=== PATIENT | female | born 1995 | race African-American/Black ===

== ENCOUNTER 2019-07-21 09:19 | Inpatient (IN) ==
[2019-07-21] MEDS ORDERED: KETOROLAC TROMETHAMINE 15 MG/ML VIAL IV STA (09:41)
[2019-07-21] MEDS ORDERED: PIPERACILLIN/TAZOBACTAM 4.5 GM/120 ML BAG IV STA (09:41)
[2019-07-21] MEDS ORDERED: SODIUM CHLORIDE 0.9% 1000ML 1,000 ML IV SCH (09:45)
--- NOTE | 2019-07-21 09:47 | Emergency Department Note ---
Impression & Plan Perirectal cellulitis, Leukocytosis ED Provider Note NAME: ANCA FARIAS AGE: 23 SEX: F : 1995 ARRIVES VIA: Walk-In INFORMANT: [Patient][outpt doctor] ED PROVIDER(S): [John Park MD] CHIEF COMPLAINT: Rectal pain HISTORY OF PRESENT ILLNESS: The patient is a 23-year-old female who presents with 6 days of left-sided rectal pain. The patient states that she thought she had a boil in the area. The pain has become a 9/10. The pain is worse to sit on the area. She is able to have a bowel movement without difficulty. She has had no fever or chills. She is not diabetic. No urinary complaints. The patient went to [facility] and then was referred to the ED after she was examined. There was concern for perirectal abscess. The patient has no history of any type of process like this before. She has not had vomiting. She has not been having chest pain or shortness of breath. REVIEW OF SYSTEMS: See HPI for pertinent positives and negatives. A total of ten systems were reviewed and were otherwise negative. PMHx/PSHx: See Below SOCIAL HISTORY: See Below. PHYSICAL EXAM: GENERAL: Patient is in no acute distress. HEENT: No acute trauma, normocephalic atraumatic, mucous membranes moist, no nasal congestion, no scleral icterus. NECK: No stridor, no adenopathy, no meningismus, trachea is midline. LUNGS: Clear to auscultation bilaterally, no wheeze, no rhonchi, breath sounds equal. HEART: Without murmurs gallops or rubs, regular rate and rhythm. ABDOMEN: Soft, nontender, bowel sounds positive, no hernias, no peritonitis. EXTREMITIES: No cyanosis or edema, full range of motion of all the joints without pain or difficulty, no signs for acute trauma. NEUROLOGIC: Oriented x 3, no acute motor or sensory deficits, no focal weakness. SKIN: No rash, no jaundice, no diaphoresis. Rectal: The patient does have inflammation, erythema, tenderness along the left side of the anal area and left buttock crease. There is no obvious fluctuance, no drainage. The area of note is approximately 5 to 6 cm in size. DIFFERENTIAL DIAGNOSIS: Perirectal abscess, cellulitis, hemorrhoid, bacteremia, sepsis, fistula, Bartholin's abscess, inflammatory bowel disease. EMERGENCY DEPARTMENT COURSE/PROCEDURES: MEDICAL DECISION MAKING: A mild leukocytosis consistent with infection. There is no anemia. No significant electrolyte abnormality or kidney failure. Lactic acid level is not elevated making sepsis less likely. Patient does not appear by her testing. No concerning liver enzyme elevation. CT of the abdomen and pelvis shows evidence for cellulitis/phlegmon in the area of the left buttock, there was no obvious drainable abscess. The patient received IV saline for hydration. She was given IV Zosyn as antibiotic coverage. She was given IV Toradol for pain. I did have the patient seen by surgery. The patient has no surgical need at this point. Nothing is drainable. A hospital medical admission was recommended for IV antibiotic therapy. Surgery can follow in consult. I spoke to the patient, I talked to the showcase maker. The on-call hospitalist was consulted. Past Med/Surg History Medical History No significant past medical history Surgical History S/P left inguinal hernia repair Social History Preferred Language: Malian Beliefs That Will Affect Care: None Current Living Situation: Other Current Living Situation Comment: [place] Feels Safe at Home: Yes Smoking Status: Never smoker Hx Alcohol Use: Yes Hx Substance Use: No Allergies Allergies Allergy/AdvReac Type Severity Reaction Status Date / Time No Known Allergies Allergy Unverified 07/21/19 10:25 Home Meds Home Medications Medication Instructions Recorded Confirmed acetaminophen [Tylenol Extra 500 mg PO Q6H PRN 07/21/19 07/21/19 Strength] norethindrone-e.estradiol-iron 1 tab PO DAILY 07/21/19 07/21/19 [] Results & Data (ED) Vital Signs Vital Signs - 24 hr 07/21/19 09:22 07/21/19 11:20 Temperature 37.4 C Temperature Source Oral Pulse Rate 99 H Pulse Rate [Finger] 74 Respiratory Rate 17 16 Respiratory Effort / Characteristics Non-Labored Non-Labored Respiratory Depth Normal Normal Blood Pressure 135/82 Blood Pressure [Right Arm] 115/68 Blood Pressure Mean 99 Blood Pressure Mean [Right Arm] 83 Blood Pressure Position Sitting Blood Pressure Position [Right Arm] Sitting Pulse Oximetry 97 100 Oxygen Delivery Method Room Air Room Air Sepsis Recent Fever Within 48 Hours No Sepsis New/Unexplained Change in Mental Status No Sepsis Action Taken by Nursing No Action Required Home Medications Current Medication List: was personally reviewed by me Laboratory Data Attestation: I reviewed the patient's lab results. Result diagrams: 07/21/19 09:51 07/21/19 09:51 Lab Results 07/21/19 07/21/19 07/21/19 Range/Units 09:51 09:51 09:51 WBC 11.01 H (4.8-10.8) K/uL RBC 4.77 (4.2-5.4) M/uL Hgb 13.9 (12.0-16.0) g/dL Hct 41.3 (37-47) % MCV 86.6 (80-100) fL MCH 29.1 (25-34) pg MCHC 33.7 (32-36) g/dL RDW Std Deviation 44.6 (36.4-46.3) fL RDW Coeff of Marco Antonio 14.1 (11.5-14.5) % Plt Count 269 (130-400) K/uL MPV 10.6 H (7.4-10.4) fL Immature Gran % (Auto) 0.3 % Neut % (Auto) 76.9 % Lymph % (Auto) 15.2 % [place] % (Auto) 7.1 % Eos % (Auto) 0.2 % Baso % (Auto) 0.3 % Immature Gran # (Auto) 0.03 H (0.00-0.02) K/uL Neut # (Auto) 8.48 H (1.4-6.5) K/uL Lymph # (Auto) 1.67 (1.2-3.4) K/uL [place] # (Auto) 0.78 H (0.11-0.59) K/uL Eos # (Auto) 0.02 (0-0.5) K/uL Baso # (Auto) 0.03 (0-0.2) K/uL Sodium 139 (136-145) mmol/L Potassium 3.3 L (3.5-5.1) mmol/L Chloride 108 H (98-107) mmol/L Carbon Dioxide 23 (21-32) mmol/L Anion Gap 8.0 (3-11) BUN 7 (7-18) mg/dl Creatinine 0.88 (0.6-1.2) mg/dl Est Cr Clr Drug Dosing 126.7 ml/min Est GFR ( Amer) 106.6 Est GFR (Non-Af Amer) 92.0 BUN/Creatinine Ratio 7.9 L (10-20) Glucose 105 H (70-99) mg/dl Lactate 1.8 (0.4-2.0) mmol/L Calcium 9.2 (8.5-10.1) mg/dl Total Bilirubin 0.6 (0.2-1) mg/dl AST 31 (15-37) U/L ALT 64 (12-78) U/L Alkaline Phosphatase 81 (45-117) U/L Total Protein 9.2 H (6.4-8.2) gm/dl Albumin 3.7 (3.4-5.0) gm/dl Globulin 5.5 H (2.5-4.0) gm/dl Albumin/Globulin Ratio 0.7 L (0.9-2) HCG, Qual (Negative) 07/21/19 Range/Units 09:59 WBC (4.8-10.8) K/uL RBC (4.2-5.4) M/uL Hgb (12.0-16.0) g/dL Hct (37-47) % MCV (80-100) fL MCH (25-34) pg MCHC (32-36) g/dL RDW Std Deviation (36.4-46.3) fL RDW Coeff of Marco Antonio (11.5-14.5) % Plt Count (130-400) K/uL MPV (7.4-10.4) fL Immature Gran % (Auto) % Neut % (Auto) % Lymph % (Auto) % [place] % (Auto) % Eos % (Auto) % Baso % (Auto) % Immature Gran # (Auto) (0.00-0.02) K/uL Neut # (Auto) (1.4-6.5) K/uL Lymph # (Auto) (1.2-3.4) K/uL [place] # (Auto) (0.11-0.59) K/uL Eos # (Auto) (0-0.5) K/uL Baso # (Auto) (0-0.2) K/uL Sodium (136-145) mmol/L Potassium (3.5-5.1) mmol/L Chloride (98-107) mmol/L Carbon Dioxide (21-32) mmol/L Anion Gap (3-11) BUN (7-18) mg/dl Creatinine (0.6-1.2) mg/dl Est Cr Clr Drug Dosing ml/min Est GFR ( Amer) Est GFR (Non-Af Amer) BUN/Creatinine Ratio (10-20) Glucose (70-99) mg/dl Lactate (0.4-2.0) mmol/L Calcium (8.5-10.1) mg/dl Total Bilirubin (0.2-1) mg/dl AST (15-37) U/L ALT (12-78) U/L Alkaline Phosphatase (45-117) U/L Total Protein (6.4-8.2) gm/dl Albumin (3.4-5.0) gm/dl Globulin (2.5-4.0) gm/dl Albumin/Globulin Ratio (0.9-2) HCG, Qual Negative (Negative) Administered Medications Acetaminophen (Tylenol) 650 mg PO Q4HWA JUNIOR Stop: 08/20/19 15:59 Last Admin: 07/21/19 16:05 Dose: 650 mg Documented by: [id number] Ampicillin Sodium/Sulbactam Sodium 3,000 mg/ Sodium Chloride 108 mls @ 200 mls/hr IV Q6H JUNIOR; Protocol Stop: 07/28/19 14:02 Last Infusion: 07/21/19 18:06 Dose: 0 mls/hr Documented by: [id number] Admin: 07/21/19 17:04 Dose: 200 mls/hr Documented by: [id number] Ioversol (Optiray 320 100ml) 93 ml IV ONCE PRN PRN Reason: Interaction Checking Stop: 07/25/19 10:55 Last Admin: 07/21/19 10:56 Dose: 93 ml Documented by: [id number] Ketorolac Tromethamine (Toradol) 30 mg IV Q6H PRN PRN Reason: Pain Stop: 07/26/19 14:02 Last Admin: 07/21/19 16:06 Dose: 30 mg Documented by: [id number] Miscellaneous (Order Awaiting Action) 1 ea N/A QS JUNIOR Stop: 08/20/19 15:59 Last Admin: 07/21/19 16:04 Dose: Not Given Documented by: [id number] Discontinued Medications Sodium Chloride (Nss 1000ml) 1,000 mls @ 999 mls/hr IV .Q1H1M JUNIOR Stop: 07/21/19 10:45 Last Infusion: 07/21/19 11:49 Dose: 0 mls/hr Documented by: [id number] Admin: 07/21/19 10:48 Dose: 999 mls/hr Documented by: [id number] Piperacillin Sod/Tazobactam Sod (Zosyn) 4.5 gm in 120 mls @ 200 mls/hr IV NOW STA Stop: 07/21/19 10:16 Last Infusion: 07/21/19 10:51 Dose: 0 mls/hr Documented by: [id number] Admin: 07/21/19 10:15 Dose: 200 mls/hr Documented by: [id number] Ketorolac Tromethamine (Toradol) 15 mg IV NOW STA Stop: 07/21/19 09:42 Last Admin: 07/21/19 10:15 Dose: 15 mg Documented by: [id number] Ketorolac Tromethamine (Toradol) 15 mg IV NOW ONE Stop: 07/21/19 12:23 Last Admin: 07/21/19 12:53 Dose: 15 mg Documented by: [id number] Imaging Data Radiologist's Impression: CT abd pelvis IV con only CLINICAL HISTORY: suspected perirectal abscess COMPARISON STUDY: None. TECHNIQUE: The patient was scanned in a dynamic helical fashion during intravenous administration of 93 cc of Optiray 320. A dose lowering technique was utilized adhering to the principles of ALARA. CT DOSE: 1606.01 mGy.cm FINDINGS: Lower chest: There are trace pleural effusions. There is no basilar parenchymal consolidation. Liver: The contrast-enhanced liver is normal in size, contour, and attenuation. There is no intrahepatic biliary ductal dilatation. The hepatic veins and portal veins are patent. Gallbladder: Unremarkable. Spleen: Normal in size and attenuation. Pancreas: Unremarkable. Adrenal glands: Unremarkable. Kidneys: There is a 28 mm soft tissue nodule located between the lower pole the spleen and the left kidney. This exceeds water attenuation and is therefore indeterminate. The organ of origin of this nodule is unclear. Bowel: There are no transition zones to indicate bowel obstruction. There are no findings to indicate acute diverticulitis. There is no evidence of acute appendicitis. There is infiltration of the soft tissues of the left medial gluteal fold. This is likely an infectious/inflammatory basis. A discrete well-defined abscess is not visualized. A sinus tract to the anus cannot be excluded. Peritoneum: There is no intraperitoneal free air or abdominal ascites. Vasculature: The abdominal aorta is normal in course and caliber. Adenopathy: None. Pelvic viscera: The bladder, and pelvic viscera are unremarkable. Skeletal structures: No destructive osseous lesions are seen. IMPRESSION: 1. 28 mm soft tissue nodule located between the lower pole of the spleen and the left kidney of indeterminate etiology. 2. No evidence of bowel obstruction. No evidence of free air 3. Infiltration of the soft tissues of the left medial gluteal fold, likely infectious/inflammatory. A discrete well-defined abscess is not visualized. A sinus tract to the anus cannot be excluded. Blood Pressure Blood Pressure Findings: Elevated blood pressure Blood Pressure Disposition: further management by hospitalist Discharge Plan Visit Data *Final* Discharge Date/Time: 07/21/19 13:50 Chief Complaint: Referred by Doctor Stated Complaint: REFERRED BY [facility] ED Provider: John Park Discharge Problem: Perirectal cellulitis, Leukocytosis Patient Disposition: Admitted As Inpatient Condition: Good Discharge Instructions Interventions: ED Discharge Assessment Last Done: 07/21/19 13:50 Discharge Problem: Leukocytosis Qualifiers: Leukocytosis type: unspecified Qualified Code(s): D72.829 - Elevated white blood cell count, unspecified
[2019-07-21 10:13] LABS: Basophils # (auto) 0.03 K/uL (0-0.2); Basophils % (auto) 0.3 %; Eosinophils # (auto) 0.02 K/uL (0-0.5); Eosinophils % (auto) 0.2 %; Hematocrit (blood only) 41.3 % (37-47); Hemoglobin 13.9 g/dL (12.0-16.0); Immature Granulocytes # (auto) 0.03 K/uL (0.00-0.02); Immature Granulocytes % (auto) 0.3 %; Lymphocytes # (auto) 1.67 K/uL (1.2-3.4); Lymphocytes % (auto) 15.2 %; Mean Corpuscular Hemoglobin 29.1 pg (25-34); Mean Corpuscular Hgb Conc 33.7 g/dL (32-36); Mean Corpuscular Volume 86.6 fL (80-100); Mean Platelet Volume 10.6 fL (7.4-10.4); Monocytes # (auto) 0.78 K/uL (0.11-0.59); Monocytes % (auto) 7.1 %; Neutrophils # (auto) 8.48 K/uL (1.4-6.5); Neutrophils % (auto) 76.9 %; Platelet Count 269 K/uL (130-400); RDW Coefficient of Variation 14.1 % (11.5-14.5); RDW Standard Deviation 44.6 fL (36.4-46.3); Red Blood Count 4.77 M/uL (4.2-5.4); White Blood Count 11.01 K/uL (4.8-10.8)
[2019-07-21 10:33] LABS: Albumin Level 3.7 gm/dl (3.4-5.0); BUN Creatinine Ratio 7.9 (10-20); Calcium 9.2 mg/dl (8.5-10.1); Creatinine Clr Calc Pharmacy 126.7 ml/min; Est GFR (African American) 106.6; Potassium 3.3 mmol/L (3.5-5.1)
[2019-07-21 10:35] LABS: Albumin Globulin Ratio 0.7 (0.9-2); Bilirubin,Total 0.6 mg/dl (0.2-1); Globulin 5.5 gm/dl (2.5-4.0); Total Protein 9.2 gm/dl (6.4-8.2)
[2019-07-21] MEDS ORDERED: IOVERSOL 100ml IV PRN (10:56)
--- NOTE | 2019-07-21 11:13 | CT Scan Report ---
CT abd pelvis IV con only CLINICAL HISTORY: suspected perirectal abscess COMPARISON STUDY: None. TECHNIQUE: The patient was scanned in a dynamic helical fashion during intravenous administration of 93 cc of Optiray 320. A dose lowering technique was utilized adhering to the principles of ALARA. CT DOSE: 1606.01 mGy.cm FINDINGS: Lower chest: There are trace pleural effusions. There is no basilar parenchymal consolidation. Liver: The contrast-enhanced liver is normal in size, contour, and attenuation. There is no intrahepa tic biliary ductal dilatation. The hepatic veins and portal veins are patent. Gallbladder: Unremarkable. Spleen: Normal in size and attenuation. Pancreas: Unremarkable. Adrenal glands: Unremarkable. Kidneys: There is a 28 mm soft tissue nodule located between the lower pole the spleen and the left k idney. This exceeds water attenuation and is therefore indeterminate. The organ of origin of this nod ule is unclear. Bowel: There are no transition zones to indicate bowel obstruction. There are no findings to indicate acute diverticulitis. There is no evidence of acute appendicitis. There is infiltration of the soft tissues of the left medial gluteal fold. This is likely an infectious/inflammatory basis. A discrete well-defined abscess is not visualized. A sinus tract to the anus cannot be excluded. Peritoneum: There is no intraperitoneal free air or abdominal ascites. Vasculature: The abdominal aorta is normal in course and caliber. Adenopathy: None. Pelvic viscera: The bladder, and pelvic viscera are unremarkable. Skeletal structures: No destructive osseous lesions are seen. IMPRESSION: 1. 28 mm soft tissue nodule located between the lower pole of the spleen and the left kidney of indet erminate etiology. 2. No evidence of bowel obstruction. No evidence of free air 3. Infiltration of the soft tissues of the left medial gluteal fold, likely infectious/inflammatory. A discrete well-defined abscess is not visualized. A sinus tract to the anus cannot be excluded. ACT 112: Negative or not required by law. Electronically signed by: Krishan Lema M.D. 07/21/2019 11:12 AM
[2019-07-21 11:33] LABS: Pregnancy Test, Serum Negative (Negative)
--- NOTE | 2019-07-21 12:14 | Surgery Consultation ---
Date of Consultation July 21, 2019 Assessment & Plan (1) Buttock pain: This patient has pain along the left gluteal crease that would be suspicious for a perirectal abscess however the CT scan demonstrates evidence of inflammatory response however there is no collection seen. I agree with adm ission for IV antibiotics. We will continue to follow. I explained to her that this may develop into something that would become drainable but at the present time that is not the case. She understands. We will continue to follow History of Present Illness Reason for Consultation: Buttock cellulitis Requesting Physician: John Park MD History of Present Illness This is a 23-year-old female who presented to the emergency room with a complaint of buttock pain on the left side. She stated it began 6 days ago. It was mild but then increased in intensity such that it became difficult to walk a difficult to sit down. She tried some local therapies like heating pads and salve but none of that was effective. The pain is not on the right. There is been no drainage from any point near where the pain is located. She is never had anything like this before. Her bowel habits have been normal with no melena or hematochezia. She has had no nausea or vomiting. She denies abdominal pain. She lives in a house without air conditioning and has been hot but is unsure as to whether or not it is because of no air conditioning or whether she had a fever. Allergies Allergy/AdvReac Type Severity Reaction Status Date / Time No Known Allergies Allergy Unverified 07/21/19 10:25 Home Medications Home Medications Medication Instructions Recorded Confirmed Type Control 1 tab PO DAILY@199907/21/19 07/21/19 History acetaminophen [Tylenol Extra 500 mg PO Q6H PRN 07/21/19 07/21/19 History Strength] Patient History Surgical History (Updated 07/21/19 @ 12:19 by Rhett Garvey MD) S/P left inguinal hernia repair Social History Preferred Language: Swiss Feels Safe at Home: Yes Smoking Status: Never smoker Review of Systems Review of Systems: All systems reviewed & are unremarkable except as noted in HPI & below Physical Exam Constitutional: no acute distress Neck: trachea midline Respiratory: normal respiratory effort, lungs clear to auscultation Cardiovascular: RRR, no murmur, no edema Gastrointestinal (Abdomen): Inspection/Auscultation: normal bowel sounds; abdomen not distended Percussion/Palpation: abdomen soft; abdomen nontender There is tenderness along the gluteal crease on the left but no fluctuance. There are no openings that would indicate a possible fistula or sinus tract. I cannot express any drainage. Skin: no rashes, warm and dry Results & Data Vital Signs (Past 12 Hours) Vital Signs Temp Pulse Pulse Resp BP BP Pulse Ox 07/21/19 11:20 74 16 115/68 100 07/21/19 09:22 37.4 C 99 H 17 135/82 97 Laboratory Results 07/21/19 07/21/19 07/21/19 Range/Units 09:59 09:51 09:51 WBC (4.8-10.8) K/uL RBC (4.2-5.4) M/uL Hgb (12.0-16.0) g/dL Hct (37-47) % MCV (80-100) fL MCH (25-34) pg MCHC (32-36) g/dL RDW Std Deviation (36.4-46.3) fL RDW Coeff of Marco Antonio (11.5-14.5) % Plt Count (130-400) K/uL MPV (7.4-10.4) fL Immature Gran % (Auto) % Neut % (Auto) % Lymph % (Auto) % [place] % (Auto) % Eos % (Auto) % Baso % (Auto) % Immature Gran # (Auto) (0.00-0.02) K/uL Neut # (Auto) (1.4-6.5) K/uL Lymph # (Auto) (1.2-3.4) K/uL [place] # (Auto) (0.11-0.59) K/uL Eos # (Auto) (0-0.5) K/uL Baso # (Auto) (0-0.2) K/uL Sodium 139 (136-145) mmol/L Potassium 3.3 L (3.5-5.1) mmol/L Chloride 108 H (98-107) mmol/L Carbon Dioxide 23 (21-32) mmol/L Anion Gap 8.0 (3-11) BUN 7 (7-18) mg/dl Creatinine 0.88 (0.6-1.2) mg/dl Est Cr Clr Drug Dosing 126.7 ml/min Est GFR ( Amer) 106.6 Est GFR (Non-Af Amer) 92.0 BUN/Creatinine Ratio 7.9 L (10-20) Glucose 105 H (70-99) mg/dl Lactate 1.8 (0.4-2.0) mmol/L Calcium 9.2 (8.5-10.1) mg/dl Total Bilirubin 0.6 (0.2-1) mg/dl AST 31 (15-37) U/L ALT 64 (12-78) U/L Alkaline Phosphatase 81 (45-117) U/L Total Protein 9.2 H (6.4-8.2) gm/dl Albumin 3.7 (3.4-5.0) gm/dl Globulin 5.5 H (2.5-4.0) gm/dl Albumin/Globulin Ratio 0.7 L (0.9-2) HCG, Qual Negative (Negative) 07/21/19 Range/Units 09:51 WBC 11.01 H (4.8-10.8) K/uL RBC 4.77 (4.2-5.4) M/uL Hgb 13.9 (12.0-16.0) g/dL Hct 41.3 (37-47) % MCV 86.6 (80-100) fL MCH 29.1 (25-34) pg MCHC 33.7 (32-36) g/dL RDW Std Deviation 44.6 (36.4-46.3) fL RDW Coeff of Marco Antonio 14.1 (11.5-14.5) % Plt Count 269 (130-400) K/uL MPV 10.6 H (7.4-10.4) fL Immature Gran % (Auto) 0.3 % Neut % (Auto) 76.9 % Lymph % (Auto) 15.2 % [place] % (Auto) 7.1 % Eos % (Auto) 0.2 % Baso % (Auto) 0.3 % Immature Gran # (Auto) 0.03 H (0.00-0.02) K/uL Neut # (Auto) 8.48 H (1.4-6.5) K/uL Lymph # (Auto) 1.67 (1.2-3.4) K/uL [place] # (Auto) 0.78 H (0.11-0.59) K/uL Eos # (Auto) 0.02 (0-0.5) K/uL Baso # (Auto) 0.03 (0-0.2) K/uL Sodium (136-145) mmol/L Potassium (3.5-5.1) mmol/L Chloride (98-107) mmol/L Carbon Dioxide (21-32) mmol/L Anion Gap (3-11) BUN (7-18) mg/dl Creatinine (0.6-1.2) mg/dl Est Cr Clr Drug Dosing ml/min Est GFR ( Amer) Est GFR (Non-Af Amer) BUN/Creatinine Ratio (10-20) Glucose (70-99) mg/dl Lactate (0.4-2.0) mmol/L Calcium (8.5-10.1) mg/dl Total Bilirubin (0.2-1) mg/dl AST (15-37) U/L ALT (12-78) U/L Alkaline Phosphatase (45-117) U/L Total Protein (6.4-8.2) gm/dl Albumin (3.4-5.0) gm/dl Globulin (2.5-4.0) gm/dl Albumin/Globulin Ratio (0.9-2) HCG, Qual (Negative) Diagnostic Findings CT abd pelvis IV con only CLINICAL HISTORY: suspected perirectal abscess COMPARISON STUDY: None. TECHNIQUE: The patient was scanned in a dynamic helical fashion during intravenous administration of 93 cc of Optiray 320. A dose lowering technique was utilized adhering to the principles of ALARA. CT DOSE: 1606.01 mGy.cm FINDINGS: Lower chest: There are trace pleural effusions. There is no basilar parenchymal consolidation. Liver: The contrast-enhanced liver is normal in size, contour, and attenuation. There is no intrahepatic biliary ductal dilatation. The hepatic veins and portal veins are patent. Gallbladder: Unremarkable. Spleen: Normal in size and attenuation. Pancreas: Unremarkable. Adrenal glands: Unremarkable. Kidneys: There is a 28 mm soft tissue nodule located between the lower pole the spleen and the left kidney. This exceeds water attenuation and is therefore indeterminate. The organ of origin of this nodule is unclear. Bowel: There are no transition zones to indicate bowel obstruction. There are no findings to indicate acute diverticulitis. There is no evidence of acute appendicitis. There is infiltration of the soft tissues of the left medial gluteal fold. This is likely an infectious/inflammatory basis. A discrete well- defined abscess is not visualized. A sinus tract to the anus cannot be excluded. Peritoneum: There is no intraperitoneal free air or abdominal ascites. Vasculature: The abdominal aorta is normal in course and caliber. Adenopathy: None. Pelvic viscera: The bladder, and pelvic viscera are unremarkable. Skeletal structures: No destructive osseous lesions are seen. IMPRESSION: 1. 28 mm soft tissue nodule located between the lower pole of the spleen and the left kidney of indeterminate etiology. 2. No evidence of bowel obstruction. No evidence of free air 3. Infiltration of the soft tissues of the left medial gluteal fold, likely infectious/inflammatory. A discrete well-defined abscess is not visualized. A sinus tract to the anus cannot be excluded.
--- NOTE | 2019-07-21 12:19 | History & Physical Report ---
Date of Service July 21, 2019 Assessment & Plan (1) Perirectal cellulitis: Appreciate surgery consult - no drainable abscess at this time, recommended IV antibiotics Admit under observation to med/surg Follow up blood cultures IV Unasyn 3g Q6H, can switch to Augmentin on discharge Acetaminophen JUNIOR, Toradol PRN 2nd line and oxycodone 3rd line for pain. Donut cushion when sitting if available. Admission and Anticipated Discharge Date Admission Date: 07/21/2019 Anticipated date of discharge: 07/22/19 History of Present Illness Chief Complaint: Left buttocks pain Primary Care Provider: [facility] Snow Rodas is a 23 year old female who was referred to the ER by [facility] due to left gluteal pain and concern for perirectal abscess. She reports this started 6 days ago. Never had this previously. Initially just pain but the last few days she has noticed her left buttocks getting larger. Using hot water with towel, heating pad, tea tree oil but this was not helping. Currently hurts while walking or sitting down. At home she was taking ibuprofen previously and acetaminophen today but nothing helping. No fevers or chills. Lately she is working from home and sitting with the lockdown she has been sitting down a lot more. 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 She denies any nausea, vomiting, abdominal pain, constipation or diarrhea. She is having normal bowel movements without pain. No recent history of cough, shortness of breath, fever, loss of taste or smell. No known COVID-19 exposure. In the ER she underwent CT A/P with IV contrast showing infiltration of the soft tissues of the left medial gluteal fold without a discrete well-defined abscess. Dr Garvey (general surgery) consulted and recommended admission for IV antibiotics. IV Zosyn 4.5mg given in ER. Allergies Allergy/AdvReac Type Severity Reaction Status Date / Time No Known Allergies Allergy Unverified 07/21/19 10:25 Home Medications Home Medications Medication Instructions Recorded Confirmed Type Control 1 tab PO DAILY@199907/21/19 07/21/19 History acetaminophen [Tylenol Extra 500 mg PO Q6H PRN 07/21/19 07/21/19 History Strength] Past Med/Surg History Medical History (Updated 07/21/19 @ 12:39 by Cameron Napoles MD) No significant past medical history Surgical History (Updated 07/21/19 @ 12:19 by Rhett Garvey MD) S/P left inguinal hernia repair Social History Preferred Language: Lithuanian Feels Safe at Home: Yes Smoking Status: Never smoker Review of Systems Review of Systems: All systems reviewed & are unremarkable except as noted in HPI & below Physical Exam Constitutional: well nourished and + morbidly obese; no acute distress Eyes: + anicteric sclerae; normal pupil size ENMT: external ear and nose normal, oropharynx normal Respiratory: normal respiratory effort, lungs clear to auscultation Cardiovascular: RRR, no murmur, no edema Gastrointestinal (Abdomen): normal bowel sounds, soft, nontender, no hepatosplenomegaly Rectal Exam: + abnormal visual inspection of rectum (tenderness and swelling with skin breakdown on left gluteal crease without) Musculoskeletal: no cyanosis or clubbing, extremities motor strength 5/5 Skin: no rashes, warm and dry Neurologic: moves all extremities and awake Psychiatric: A+Ox3, euthymic affect Results & Data Results & Data ([facility]) Vital Signs (Past 12 Hours) Vital Signs Temp Pulse Pulse Resp BP BP Pulse Ox 07/21/19 11:20 74 16 115/68 100 07/21/19 09:22 37.4 C 99 H 17 135/[address] abd pelvis IV con only IMPRESSION: 1. 28 mm soft tissue nodule located between the lower pole of the spleen and the left kidney of indeterminate etiology. 2. No evidence of bowel obstruction. No evidence of free air 3. Infiltration of the soft tissues of the left medial gluteal fold, likely infectious/inflammatory. A discrete well-defined abscess is not visualized. A sinus tract to the anus cannot be excluded. Code Status & VTE Plan Code Status Full VTE Prophylaxis Plan VTE Prophylaxis will be ordered: No PG Care Time/CCT Total # of Minutes Spent Total Time Spent with Patient: Total time spent is greater than 50% in coordination of care (as documented) at patient's floor/unit and/or counseling patient: Coding Level of Care Code 92879 OBS Care - Level 2 Diagnoses Perirectal cellulitis K61.1
[2019-07-21] MEDS ORDERED: KETOROLAC TROMETHAMINE 15 MG/ML VIAL IV ONE (12:22)
[2019-07-21] MEDS ORDERED: MAGNESIUM HYDROXIDE SUSP 30 ML UDC PO PRN (14:03)
[2019-07-21] MEDS ORDERED: ONDANSETRON 4 MG OD TAB PO PRN (14:03)
[2019-07-21] MEDS ORDERED: ALUMINUM/MAGNESIUM SUSP 30 ML UDC PO PRN (14:03)
[2019-07-21] MEDS ORDERED: POLYETHYLENE (MIRALAX) 17 GM PACK PO PRN (14:03)
[2019-07-21] MEDS: ACETAMINOPHEN 325 MG TAB PO SCH ×2 (16:05→20:12)
[2019-07-21] MEDS: KETOROLAC 30 MG/ML VIAL IV PRN (16:06)
[2019-07-21] MEDS: AMPICILLIN/SULBACTAM SOD 3,000 MG in 0.9 % SODIUM CHLORIDE 100 ML IV SCH ×2 (17:04→21:35)
[2019-07-21] MEDS: OXYCODONE HCL IR 5 MG TAB (IMMEDIATE RELEASE) PO PRN (21:44)
[2019-07-22] MEDS: KETOROLAC 30 MG/ML VIAL IV PRN ×2 (00:08→23:36)
[2019-07-22] MEDS: AMPICILLIN/SULBACTAM SOD 3,000 MG in 0.9 % SODIUM CHLORIDE 100 ML IV SCH ×4 (04:08→21:18)
[2019-07-22] MEDS: OXYCODONE HCL IR 5 MG TAB (IMMEDIATE RELEASE) PO PRN ×2 (04:14→07:58)
[2019-07-22] MEDS: ACETAMINOPHEN 325 MG TAB PO SCH ×4 (07:53→21:12)
[2019-07-22 08:22] LABS: Hematocrit (blood only) 37.2 % (37-47); Hemoglobin 12.2 g/dL (12.0-16.0); Mean Corpuscular Hemoglobin 28.4 pg (25-34); Mean Corpuscular Hgb Conc 32.8 g/dL (32-36); Mean Corpuscular Volume 86.7 fL (80-100); Mean Platelet Volume 10.4 fL (7.4-10.4); Platelet Count 235 K/uL (130-400); RDW Coefficient of Variation 14.1 % (11.5-14.5); RDW Standard Deviation 44.4 fL (36.4-46.3); Red Blood Count 4.29 M/uL (4.2-5.4); White Blood Count 10.48 K/uL (4.8-10.8)
[2019-07-22 08:59] LABS: BUN Creatinine Ratio 5.6 (10-20); Calcium 8.8 mg/dl (8.5-10.1); Creatinine Clr Calc Pharmacy 134.3 ml/min; Est GFR (African American) 114.4; Est GFR (Non-African American) 98.7; Potassium 3.2 mmol/L (3.5-5.1)
[2019-07-22] MEDS ORDERED: OXYCODONE HCL IR 5 MG TAB (IMMEDIATE RELEASE) PO PRN (10:24)
--- NOTE | 2019-07-22 10:33 | Surgery Progress Note ---
Date of Service July 22, 2019 Assessment & Plan (1) Buttock pain: This patient has pain along the left gluteal crease that would be suspicious for a perirectal abscess however the CT scan demonstrates evidence of inflammatory response however there is no collection seen. No leukocytosis mildly febrile last night tmax 37.8 Plan: May require repeat imaging to assess for development of abscess vs examination under anesthesia and possible I&D give patients persistent pain. Has not received full 24 hours of IV abx yet, continue IV abx Add Colace daily to prevent any straining continue reg diet NPO after midnight in case of need of procedure tomorrow continue medical management Dr. Garvey has seen and examined pt, agrees with above. Supervising Physician Co-Signing Physician Notes Interviewed and examined this patient I agree with the above note. She is not a 24 hours of antibiotics. If there is no improvement tomorrow we will need to consider possible repeat CT scan or exam under anesthesia. Subjective still having moderate to severe rectal pain pain and swelling does not seem to have improved no n/v, tolerated regular diet Physical Exam Constitutional: WD/WN, vitals as above no acute distress Gastrointestinal (Abdomen): External rectal exam: Given body habitus, unable to full visualize area of concern. Upon palpation, induration still present but patient very tender one examination. Skin: no rashes, warm and dry Psychiatric: A+Ox3, euthymic affect Results & Data Vital Signs (Past 12 Hours) Vital Signs Temp Pulse Resp BP Pulse Ox 07/22/19 07:03 37.6 C H 99 H 16 111/72 98 07/21/19 23:25 37.8 C H 109 H 18 103/66 99 Laboratory Results 07/22/19 07/22/19 Range/Units 08:09 08:09 WBC 10.48 (4.8-10.8) K/uL RBC 4.29 (4.2-5.4) M/uL Hgb 12.2 (12.0-16.0) g/dL Hct 37.2 (37-47) % MCV 86.7 (80-100) fL MCH 28.4 (25-34) pg MCHC 32.8 (32-36) g/dL RDW Std Deviation 44.4 (36.4-46.3) fL RDW Coeff of Marco Antonio 14.1 (11.5-14.5) % Plt Count 235 (130-400) K/uL MPV 10.4 (7.4-10.4) fL Sodium 137 (136-145) mmol/L Potassium 3.2 L (3.5-5.1) mmol/L Chloride 107 (98-107) mmol/L Carbon Dioxide 24 (21-32) mmol/L Anion Gap 6.0 (3-11) BUN 5 L (7-18) mg/dl Creatinine 0.83 (0.6-1.2) mg/dl Est Cr Clr Drug Dosing 134.3 ml/min Est GFR ( Amer) 114.4 Est GFR (Non-Af Amer) 98.7 BUN/Creatinine Ratio 5.6 L (10-20) Glucose 94 (70-99) mg/dl Calcium 8.8 (8.5-10.1) mg/dl
[2019-07-22] MEDS: DOCUSATE SODIUM 100 MG CAP PO SCH (11:54)
[2019-07-22] MEDS ORDERED: VANCOMYCIN CONSULT ACTIVE PRN (12:23)
--- NOTE | 2019-07-22 12:27 | Hospitalist Progress Note ---
Date of Service July 22, 2019 Assessment & Plan (1) Perirectal cellulitis: Appreciate surgery consult - no drainable abscess at this time, recommended IV antibiotics Mild fever and tachycardia Blood cultures ngtd IV Unasyn 3g Q6H, will add vancomycin for MRSA coverage Acetaminophen JUNIOR, Toradol PRN 2nd line and oxycodone 3rd line for pain. Will increase oxycodone to 5-10mg as patient is not getting enough pain relief currently. Donut cushion when sitting if available. Stool softeners NPO after midnight per surgery in case of need for surgical intervention tomorrow (2) Hypokalemia: Replaced Recheck am (3) Nodule of soft tissue: Seen on CT - 28 mm soft tissue nodule between the spleen and left kidney Surgery recommends MRI to further evaluate (4) DVT prophylaxis: Low risk per calculator, encourage ambulation Admission and Anticipated Discharge Date Admission Date: July 21, 2019 Results & Data Results & Data ([facility]) Vital Signs (Past 12 Hours) Vital Signs Temp Pulse Resp BP Pulse Ox 07/22/19 07:03 37.6 C H 99 H 16 111/72 98 PG Care Time/CCT Total # of Minutes Spent Total Time Spent with Patient: Total time spent is greater than 50% in coordination of care (as documented) at patient's floor/unit and/or counseling patient: Coding Level of Care Code 58611 Subseq Hosp Care Lvl 2 Diagnoses Perirectal cellulitis K61.1 Hypokalemia E87.6 Nodule of soft tissue M79.89 DVT prophylaxis Z29.9
[2019-07-22] MEDS ORDERED: POTASSIUM CHLORIDE 20 MEQ TABCR PO ONE (12:30)
[2019-07-22] MEDS ORDERED: VANCOMYCIN HCL 2,750 MG in SODIUM CHLORIDE 0.9% 500 ML IV ONE (13:00)
[2019-07-22] MEDS ORDERED: MoRPHine SULFATE 2 MG/ML CARP IV PRN (13:12)
[2019-07-22] MEDS ORDERED: POTASSIUM CHLORIDE 40 MEQ in SODIUM CHLORIDE 0.9% 1000ML 1,000 ML IV SCH (14:00)
--- NOTE | 2019-07-22 14:33 | Pharmacy Report ---
Pharmacy Abx Initial Consult - Date of Service July 22, 2019 - Pharmacy Dosing Scope Date of Consult: 07/22/2019 Consultation requested by: VISHNU Martinez Pharmacy is consulted to initiate Vancomycin IV dosing therapy, order appropriate labs and adjust drug dose/frequency. - Subjective The patient is a 23 year old F admitted on 07/21/19 12:17. - Objective Height: 5 ft 5 in Weight: 118 kg Vital Signs (Past 12hrs): Vital Signs Temp Pulse Resp BP Pulse Ox 07/22/19 07:03 37.6 C H 99 H 16 111/72 98 Lab Results (24hrs): Laboratory Tests (24 Hours) 07/22/19 07/22/19 08:09 08:09 WBC 10.48 Creatinine 0.83 Est Cr Clr Drug Dosing 134.3 - Risk Factors for Resistance * None - Assessment & Plan Assessment 23 year old F admitted secondary to perirectal cellulitis * Started on Vancomycin and Unasyn (not a pharmacy consult) * Renal fxn is at baseline. Patient has low grade fever of 37.8C. Leukocytosis of 10,500. Cultures pending. Plan Vancomycin for treatment of Perirectal Cellulitis Vancomycin IV * Estimated PK Parameters: Vd 0.57 L/kg, Lex 0.116 hr-1, t1/2 6 hr * Loading dose: 2750 mg (23.3 mg/kg) * Maintenance dose: 1500 mg IV (12.7 mg/kg) every 8 hours * Goal trough level: ~ 15 mcg/mL * Trough level ordered for tomorrow prior to the 3rd maintenance dose to ensure patient is not supratherapeutic on this aggressive dose. * A less than traditional dose has been selected due to likelihood of drug accumulation in obese patient. Unasyn * Dose is appropriate per indication and renal function Pharmacy will continue to follow and will adjust dose/frequency as necessary. Thank you.
[2019-07-22] MEDS ORDERED: GADOBUTROL 65ML VIAL IV PRN (20:39)
[2019-07-22] MEDS: VANCOMYCIN HCL 1,500 MG in SODIUM CHLORIDE 0.9% 500 ML IV SCH (21:53)
[2019-07-23] MEDS: AMPICILLIN/SULBACTAM SOD 3,000 MG in 0.9 % SODIUM CHLORIDE 100 ML IV SCH ×4 (04:55→21:14)
[2019-07-23] MEDS: VANCOMYCIN HCL 1,500 MG in SODIUM CHLORIDE 0.9% 500 ML IV SCH ×3 (05:29→22:25)
[2019-07-23 07:04] LABS: Basophils # (auto) 0.01 K/uL (0-0.2); Basophils % (auto) 0.1 %; Eosinophils # (auto) 0.15 K/uL (0-0.5); Eosinophils % (auto) 1.9 %; Immature Granulocytes # (auto) 0.03 K/uL (0.00-0.02); Immature Granulocytes % (auto) 0.4 %; Lymphocytes # (auto) 1.45 K/uL (1.2-3.4); Lymphocytes % (auto) 18.3 %; Mean Corpuscular Hemoglobin 28.6 pg (25-34); Mean Corpuscular Hgb Conc 33.3 g/dL (32-36); Mean Corpuscular Volume 85.9 fL (80-100); Monocytes # (auto) 0.51 K/uL (0.11-0.59); Monocytes % (auto) 6.4 %; Neutrophils # (auto) 5.78 K/uL (1.4-6.5); Neutrophils % (auto) 72.9 %; Platelet Count 209 K/uL (130-400); RDW Coefficient of Variation 14.2 % (11.5-14.5); RDW Standard Deviation 44.4 fL (36.4-46.3); Red Blood Count 4.19 M/uL (4.2-5.4); White Blood Count 7.93 K/uL (4.8-10.8)
[2019-07-23 07:36] LABS: BUN Creatinine Ratio 4.9 (10-20); Calcium 8.3 mg/dl (8.5-10.1); Creatinine Clr Calc Pharmacy 168.9 ml/min; Est GFR (African American) 143.3; Est GFR (Non-African American) 123.6; Potassium 3.9 mmol/L (3.5-5.1)
[2019-07-23] MEDS: DOCUSATE SODIUM 100 MG CAP PO SCH (07:43)
[2019-07-23] MEDS: ACETAMINOPHEN 325 MG TAB PO SCH ×4 (07:43→20:32)
--- NOTE | 2019-07-23 09:11 | Magnetic Resonance Report ---
MR abdomen wo/w con HISTORY: evaluate 28 mm nodule below spleen found on CT TECHNIQUE: Multiplanar multisequence MRI of the abdomen was performed both before and after the intra venous administration of 10 cc of Gadavist contrast. COMPARISON STUDY: Abdomen and pelvis CT 07/21/2019. FINDINGS: Trace bilateral pleural effusions. The liver, gallbladder, pancreas, spleen, right kidney, and adrenal glands unremarkable. No retroperitoneal lymphadenopathy. Normal caliber abdominal aorta. The visualized loops of bowel show no wall thickening or obstruction. No hydronephrosis. Redemonstrat ion of the 1.8 cm T2 hyperintense, T1 hypointense circumscribed lesion located between the spleen and left kidney. This does not demonstrate enhancement and is therefore consistent with a cyst. This is likely of renal origin. This does not represent an accessory spleen. IMPRESSION: Redemonstration of the 1.8 cm T2 hyperintense, T1 hypointense circumscribed lesion located between th e spleen and left kidney. This does not demonstrate enhancement and is therefore consistent with a cy st. This is likely of renal origin. This does not represent an accessory spleen. ACT 112: Negative or not required by law. Electronically signed by: Klaus Galvin M.D. 07/23/2019 9:10 AM
--- NOTE | 2019-07-23 09:27 | Surgery Progress Note ---
Date of Service July 23, 2019 Assessment & Plan (1) Perirectal cellulitis: There is no purulent drainage coming from 2 pin holes in the area of pain and induration. We are planning for I&D under anesthesia. I explained to her the procedure and the possible complications. She signed a consent form. Subjective Pain persists although seems to be slightly decreased. She thinks maybe the swelling is decreased as well. Continues to have fever on occasion. Is low- grade. Denies abdominal pain nausea and vomiting. Physical Exam Constitutional: no acute distress Buttock: There are 2 pinhole areas from which purulent material is draining in small amounts. Remains tender. Results & Data Vital Signs (Past 12 Hours) Vital Signs Temp Pulse Resp BP Pulse Ox 07/23/19 07:42 37.7 C H 98 H 18 109/62 94 07/22/19 23:45 37 C 100 H 20 105/54 L 97 Laboratory Results 07/23/19 07/23/19 Range/Units 06:49 06:49 WBC 7.93 (4.8-10.8) K/uL RBC 4.19 L (4.2-5.4) M/uL Hgb 12.0 (12.0-16.0) g/dL Hct 36.0 L (37-47) % MCV 85.9 (80-100) fL MCH 28.6 (25-34) pg MCHC 33.3 (32-36) g/dL RDW Std Deviation 44.4 (36.4-46.3) fL RDW Coeff of Marco Antonio 14.2 (11.5-14.5) % Plt Count 209 (130-400) K/uL MPV 10.0 (7.4-10.4) fL Immature Gran % (Auto) 0.4 % Neut % (Auto) 72.9 % Lymph % (Auto) 18.3 % Plumas % (Auto) 6.4 % Eos % (Auto) 1.9 % Baso % (Auto) 0.1 % Immature Gran # (Auto) 0.03 H (0.00-0.02) K/uL Neut # (Auto) 5.78 (1.4-6.5) K/uL Lymph # (Auto) 1.45 (1.2-3.4) K/uL [place] # (Auto) 0.51 (0.11-0.59) K/uL Eos # (Auto) 0.15 (0-0.5) K/uL Baso # (Auto) 0.01 (0-0.2) K/uL Sodium 140 (136-145) mmol/L Potassium 3.9 D (3.5-5.1) mmol/L Chloride 110 H (98-107) mmol/L Carbon Dioxide 25 (21-32) mmol/L Anion Gap 5.0 (3-11) BUN 3 L (7-18) mg/dl Creatinine 0.66 (0.6-1.2) mg/dl Est Cr Clr Drug Dosing 168.9 ml/min Est GFR ( Amer) 143.3 Est GFR (Non-Af Amer) 123.6 BUN/Creatinine Ratio 4.9 L (10-20) Glucose 97 (70-99) mg/dl Calcium 8.3 L (8.5-10.1) mg/dl Diagnostic Findings MR abdomen wo/w con HISTORY: evaluate 28 mm nodule below spleen found on CT TECHNIQUE: Multiplanar multisequence MRI of the abdomen was performed both before and after the intravenous administration of 10 cc of Gadavist contrast. COMPARISON STUDY: Abdomen and pelvis CT 07/21/2019. FINDINGS: Trace bilateral pleural effusions. The liver, gallbladder, pancreas, spleen, right kidney, and adrenal glands unremarkable. No retroperitoneal lymphadenopathy. Normal caliber abdominal aorta. The visualized loops of bowel show no wall thickening or obstruction. No hydronephrosis. Redemonstration of the 1.8 cm T2 hyperintense, T1 hypointense circumscribed lesion located between the spleen and left kidney. This does not demonstrate enhancement and is therefore consistent with a cyst. This is likely of renal origin. This does not represent an accessory spleen. IMPRESSION: Redemonstration of the 1.8 cm T2 hyperintense, T1 hypointense circumscribed lesion located between the spleen and left kidney. This does not demonstrate enhancement and is therefore consistent with a cyst. This is likely of renal origin. This does not represent an accessory spleen.
--- NOTE | 2019-07-23 10:20 | Anesthesiology Consultation ---
Date of Service July 23, 2019 Assessment & Plan (1) Encounter for pre-operative examination: Chart Review Chart Review: Acceptable Risk for Surgery and Patient NOT seen in Pre Admission Testing Consults Requested none History Surgery Operation Date: 07/23/19 07:00 Proposed Procedures p Incision and Drainage Buttock Abscess - Rhett Garvey MD Height/Weight Height: 5 ft 5 in Weight: 118 kg Allergies Allergy/AdvReac Type Severity Reaction Status Date / Time No Known Allergies Allergy Verified 07/23/19 10:36 Medications Home Medications Medication Instructions Recorded Confirmed Last Taken acetaminophen [Tylenol Extra 500 mg PO Q6H PRN 07/21/19 07/21/19 07/21/19 08:30 Strength] 1000 mg norethindrone-e.estradiol-iron 1 tab PO DAILY 07/21/19 07/21/19 07/20/19 [] Active Medications Generic Name Dose Route Start Last Admin Trade Name Freq PRN Reason Stop Dose Admin Acetaminophen 650 mg 07/21/19 16:00 07/23/19 07:43 Tylenol PO 08/20/19 15:59 650 mg Q4HWA JUNIOR Administration Docusate Sodium 100 mg 07/22/19 10:45 07/23/19 07:43 Colace PO 08/21/19 10:44 100 mg DAILY JUNIOR Administration Gadobutrol 10 ml 07/22/19 20:39 07/22/19 20:40 Gadavist 65ml IV 07/26/19 20:38 10 ml ONCE PRN Administration Interaction Checking Ampicillin Sodium/Sulbactam 108 mls @ 200 mls/hr 07/21/19 16:00 07/23/19 10:07 Sodium 3,000 mg/ Sodium IV 07/28/19 14:02 108 mls/hr Chloride Q6H JUNIRO Administration Protocol Vancomycin HCl 1,500 mg/ 530 mls @ 200 mls/hr 07/22/19 22:00 07/23/19 09:00 Sodium Chloride IV 07/29/19 21:59 Infused Q8H JUNIOR Infusion Protocol Ioversol 93 ml 07/21/19 10:56 07/21/19 10:56 Optiray 320 100ml IV 07/25/19 10:55 93 ml ONCE PRN Administration Interaction Checking Ketorolac Tromethamine 30 mg 07/21/19 14:03 07/22/19 23:36 Toradol IV 07/26/19 14:02 30 mg Q6H PRN Administration Pain Miscellaneous 1 ea 07/21/19 16:00 07/23/19 07:43 Order Awaiting Action N/A 08/20/19 15:59 Not Given QS JUNIOR Ondansetron HCl 4 mg 07/21/19 14:03 07/22/19 13:14 Zofran Odt PO 08/20/19 14:02 4 mg Q4H PRN Administration Nausea NPO Date Last Intake of Fluids: 07/22/19 Time Last Intake of Fluids: 22:30 Date Last Intake of Solids: 07/22/19 Time Last Intake of Solids: 22:30 Past Medical History Medical History No significant past medical history Exercise / Class Metabolic Activity II 4-5 Yardwork/Stairs/Walk up hill Past Surgical History Surgical History S/P left inguinal hernia repair Past Anesthesia History No Hx of Anesthesia Complications and No Family Hx of Anesthesia Complications History of PONV No Hx of PONV and No Hx of Motion Sickness Social History Smoking Status: Never smoker Do You Dip or Chew Tobacco: No Hx Alcohol Use: Yes alcohol intake frequency: holidays/special occasions only Hx Substance Use: No substance use type: does not use Physical Exam Vital Signs Last Vital Signs Temp 37.0 C 07/23/19 10:33 Pulse 79 07/23/19 10:33 Resp 18 07/23/19 10:33 BP 140/81 07/23/19 10:33 Pulse Ox 99 07/23/19 10:33 Testing Laboratory Results 07/23/19 06:49 07/23/19 06:49 07/21/19 09:59 Aerobic Blood Culture - Preliminary Blood No growth in Aerobic bottle after 24 hours. Anaerobic Blood Culture - Preliminary No growth in Anaerobic bottle after 24 hours. 07/21/19 09:51 Aerobic Blood Culture - Preliminary Blood No growth in Aerobic bottle after 24 hours. Anaerobic Blood Culture - Preliminary No growth in Anaerobic bottle after 24 hours.
[2019-07-23] MEDS ORDERED: fentaNYL citrate 100 MCG/2 ML VIAL ONE ×4 (10:45→12:41)
[2019-07-23] MEDS ORDERED: PROPOFOL IV EMULSION 10 MG/ML 20 ML VIAL IV ONE (10:45)
[2019-07-23] MEDS ORDERED: MIDAZOLAM HCL 1 MG/ML 2ML VIAL ONE (10:45)
[2019-07-23] MEDS ORDERED: LIDOCAINE HCL 2% 2 ML VIAL/AMP(20MG/ML) INFIL ONE (10:45)
[2019-07-23] MEDS ORDERED: BUPIVACAINE 0.5 % 5 MG/1 ML MPF 30ML VIAL ONE (10:46)
[2019-07-23] MEDS ORDERED: EPINEPHrine INJ 1 MG/ML AMP ONE (10:46)
[2019-07-23] MEDS ORDERED: PHENYLEPHRINE 100MCG/ML 5ML SYR ONE (11:49)
[2019-07-23] MEDS ORDERED: DEXAMETHASONE SOD INJ 4 MG/ML VIAL ONE (11:49)
[2019-07-23] MEDS ORDERED: ATROPINE SULFATE 0.1 MG/ML 10ML SYR IV PRN (12:09)
[2019-07-23] MEDS ORDERED: METOCLOPRAMIDE HCL INJ 5 MG/ML 2 ML VIAL IV PRN (12:09)
[2019-07-23] MEDS ORDERED: PROMETHAZINE HCL 12.5 MG in SODIUM CHLORIDE 0.9% 50 ML IV PRN (12:09)
[2019-07-23] MEDS ORDERED: HYDROmorphone INJ 2 MG/ML SYR/VIAL IV PRN (12:09)
[2019-07-23] MEDS ORDERED: ONDANSETRON INJ 2 MG/ML 2 ML VIAL IV PRN (12:09)
[2019-07-23] MEDS ORDERED: ePHEDrine sulfate 50 MG/ML AMP IV PRN (12:09)
[2019-07-23] MEDS: fentaNYL citrate 100 MCG/2 ML VIAL IV PRN ×2 (12:57→13:09)
--- NOTE | 2019-07-23 12:57 | Post Operative Brief Note ---
Immediate Post Op Note v1 Date of Surgery July 23, 2019 Pre & Post Diagnosis Operation Date: 07/23/19 07:00 Pre-Op Diagnosis: Buttock Abscess Post-Op Diagnosis: Buttock Abscess I identified the patient and participated in the time-out.: Yes Procedure Operation Date: 07/23/19 07:00 Actual Procedures p Incision and Drainage Buttock Abscess(Not Applicable) - Rhett Garvey MD Surgeon Rhett Garvey MD Outside Dealer Sales Representative Lotus Anaya PA-C Estimated Blood Loss 15 Findings Consistent with Post-Op Diagnosis
--- NOTE | 2019-07-23 13:20 | Anesthesiology Progress Note ---
Date of Service July 23, 2019 Anesthesia Post Procedure Vital Signs Vital Signs: Temp Pulse Pulse Resp BP BP Pulse Ox 07/23/19 13:10 77 16 116/91 97 07/23/19 13:00 84 14 122/81 98 07/23/19 12:51 36.5 C 95 H 17 128/76 91 07/23/19 10:33 37.0 C 79 18 140/81 99 07/23/19 07:42 37.7 C H 98 H 18 109/62 94 07/22/19 23:45 37 C 100 H 20 105/54 L 97 07/22/19 15:24 37.1 C 98 H 18 114/72 97 Pain Intensity Buttock: Pain Intensity: 5 Transfer of Care Handoff Completed per policy Notes Mental Status: alert / awake / arousable and participated in evaluation Patient Amnestic to Procedure: Yes Nausea / Vomiting: adequately controlled Pain: adequately controlled Airway Patency, RR, SpO2: stable & adequate BP & HR: stable & adequate Hydration State: stable & adequate Anesthetic Complications: no major complications apparent
[2019-07-23] MEDS ORDERED: VANCOMYCIN TROUGH ONE (13:30)
--- NOTE | 2019-07-23 14:07 | Hospitalist Progress Note ---
Date of Service July 23, 2019 Assessment & Plan (1) Perirectal cellulitis: Appreciate surgery consult - to OR 07/22 for I&D Mild fever and tachycardia continued this am Blood cultures ngtd IV Unasyn 3g Q6H, vancomycin for MRSA coverage, await surgical cultures Pain control, stool softeners (2) Hypokalemia: Resolved (3) Nodule of soft tissue: Seen on CT - 28 mm soft tissue nodule between the spleen and left kidney MRI to re-evaluate - renal cyst (4) DVT prophylaxis: Low risk per calculator, encourage ambulation Admission and Anticipated Discharge Date Admission Date: July 23, 2019 Subjective Ms. Osborne pain was under somewhat better control this morning, no need for narcotics overnight, using Toradol. She went to surgery this afternoon for I&D. ROS Constitutional: no chills, aches, sweats or fever Respiratory: no sob,cough, sputum, or wheezing Cardiac: no chest pain, palpitations, edema, orthopnea or lightheadedness GI: no abdominal pain, nausea, vomiting, diarrhea or constipation : no dysuria or hesitancy Extremities: no joint pain or weakness Skin: no rash All other systems reviewed and negative Physical Exam Physical Exam: General: no distress Eyes: normal inspection, PERLL Respiratory: chest non tender, clear to auscultation, normal breath sounds, no respiratory distress, no accessory muscle use Cardiac: regular rate and rhythm, no rub or gallop, no murmur, no edema, no jvd GI/: active bowel sounds, no abd pain or tenderness, soft, non distended Extremities: normal range of motion, normal strength, non tender Neuro/Psych: alert and oriented x 3, normal mood and affect Skin: normal color, dry Results & Data Results & Data ([facility]) Vital Signs (Past 12 Hours) Vital Signs Temp Pulse Pulse Resp BP BP Pulse Ox 07/23/19 13:56 37.4 C 84 16 100/57 L 97 07/23/19 13:32 36.7 C 79 18 123/75 96 07/23/19 13:20 75 18 134/81 97 07/23/19 13:10 77 16 116/91 97 07/23/19 13:00 84 14 122/81 98 07/23/19 12:51 36.5 C 95 H 17 128/76 91 07/23/19 10:33 37.0 C 79 18 140/81 99 07/23/19 07:42 37.7 C H 98 H 18 109/62 94 PG Care Time/CCT Total # of Minutes Spent Total Time Spent with Patient: Total time spent is greater than 50% in coordination of care (as documented) at patient's floor/unit and/or counseling patient: Coding Level of Care Code 31694 Subseq Hosp Care Lvl 2 Diagnoses Perirectal cellulitis K61.1 Hypokalemia E87.6 Nodule of soft tissue M79.89 DVT prophylaxis Z29.9
[2019-07-23] MEDS: KETOROLAC 30 MG/ML VIAL IV PRN ×2 (14:12→22:28)
--- NOTE | 2019-07-23 15:59 | Pharmacy Report ---
Pharmacy Abx Dose Short Note - Date of Service July 23, 2019 - Assessment & Plan Assessment 23 year old F receiving vancomycin Day #3 of antimicrobial therapy. Plan Vancomycin * Trough level came back at ~7 mcg/ml (drawn before steady state), anticipate level to rise d/t elevated BMI * Continue same vancomycin dosing for now - anticipate deescalate once cultures return / no change Pharmacy will continue to follow and will adjust dose/frequency as necessary. Thank you.
[2019-07-23] MEDS ORDERED: Nursing to Pharmacy Communication SCH (17:30)
[2019-07-23] MEDS ORDERED: COUGH DROP (SUGAR FREE) LOZ 24 LOZ/1 BOX BUCCAL PRN (17:31)
--- NOTE | 2019-07-23 19:10 | Operative Report (OR) ---
DATE OF OPERATION: 07/23/2019 PREOPERATIVE DIAGNOSIS: Left buttock abscess. POSTOPERATIVE DIAGNOSIS: Left buttock abscess. PROCEDURE: Incision and drainage of left buttock abscess. SURGEON: Rhett Garvey MD. BRAND STRATEGY MANAGER: Lotus Anaya PA-C. FINDINGS: The patient had an abscess cavity measuring about 7 cm in an anterior to posterior direction that was located about 3 cm lateral to the midline. It extended from anterior to the anal opening to posterior to the anal opening. There was purulent material within it. It did not extend deeply. TECHNIQUE: The patient was given general anesthesia and the area was prepped and draped in the usual sterile fashion. Spontaneous drainage had begun from a small opening. This was dilated with a hemostat. The purulent material was then cultured. The hemostat worked through the cavity posteriorly, and over the hemostat, the skin was opened. The purulent drainage was expressed. A finger was placed into the cavity and any loculations were opened. The area was then irrigated copiously with saline solution and the wound was then packed. Estimated blood loss was 15 mL. Sponge, needle and instrument counts were correct prior to closure. Dressing was placed. The physician reading assistant was present during the entire case and helped with retraction, irrigation and packing. I attest to the content of the Intraoperative Record and any orders documented therein. Any exception s are noted below.
[2019-07-24] MEDS: AMPICILLIN/SULBACTAM SOD 3,000 MG in 0.9 % SODIUM CHLORIDE 100 ML IV SCH ×2 (03:59→11:16)
[2019-07-24] MEDS: KETOROLAC 30 MG/ML VIAL IV PRN ×2 (04:05→11:16)
[2019-07-24] MEDS: VANCOMYCIN HCL 1,500 MG in SODIUM CHLORIDE 0.9% 500 ML IV SCH (05:16)
[2019-07-24 06:43] LABS: Basophils # (auto) 0.03 K/uL (0-0.2); Basophils % (auto) 0.3 %; Eosinophils # (auto) 0.07 K/uL (0-0.5); Eosinophils % (auto) 0.8 %; Hemoglobin 11.9 g/dL (12.0-16.0); Immature Granulocytes # (auto) 0.04 K/uL (0.00-0.02); Immature Granulocytes % (auto) 0.4 %; Lymphocytes # (auto) 1.88 K/uL (1.2-3.4); Lymphocytes % (auto) 20.4 %; Mean Corpuscular Hemoglobin 28.7 pg (25-34); Mean Corpuscular Hgb Conc 33.1 g/dL (32-36); Mean Platelet Volume 10.2 fL (7.4-10.4); Monocytes # (auto) 0.86 K/uL (0.11-0.59); Monocytes % (auto) 9.3 %; Neutrophils # (auto) 6.33 K/uL (1.4-6.5); Neutrophils % (auto) 68.8 %; Platelet Count 232 K/uL (130-400); RDW Coefficient of Variation 14.1 % (11.5-14.5); RDW Standard Deviation 44.6 fL (36.4-46.3); Red Blood Count 4.14 M/uL (4.2-5.4); White Blood Count 9.21 K/uL (4.8-10.8)
[2019-07-24 07:18] LABS: Albumin Level 2.6 gm/dl (3.4-5.0); BUN Creatinine Ratio 7.2 (10-20); Calcium 8.7 mg/dl (8.5-10.1); Creatinine Clr Calc Pharmacy 174.2 ml/min; Est GFR (African American) 144.8; Est GFR (Non-African American) 124.9; Potassium 3.5 mmol/L (3.5-5.1)
[2019-07-24 07:21] LABS: Albumin Globulin Ratio 0.6 (0.9-2); Bilirubin,Total 0.3 mg/dl (0.2-1); Globulin 4.5 gm/dl (2.5-4.0); Total Protein 7.1 gm/dl (6.4-8.2)
[2019-07-24] MEDS: ACETAMINOPHEN 325 MG TAB PO SCH ×2 (08:10→11:17)
[2019-07-24] MEDS: DOCUSATE SODIUM 100 MG CAP PO SCH (08:10)
--- NOTE | 2019-07-24 11:21 | Surgery Progress Note ---
Date of Service July 24, 2019 Assessment & Plan (1) Perirectal cellulitis: POD # 1 s/p I&D left gluteal abscess. -no leukocytosis - preop pain resolved, postop pain moderate but controlled - afebrile Plan: Packing removed, healthy wound base Does not need daily packing changes discharge instructions reviewed Rx for Augmentin for 7 days f/u surgical office in [address] Garvey has seen and examined pt, agrees with above. Subjective feeling much better pain is better but still present, more postop pain now had bowel movement but was hard and had to strain no n/v Physical Exam Constitutional: WD/WN, vitals as above no acute distress Gastrointestinal (Abdomen): Perirectal: dressing present. Packing present, removed, healthy granulation tissue, no surrounding induration. Skin: no rashes, warm and dry Psychiatric: A+Ox3, euthymic affect Results & Data Vital Signs (Past 12 Hours) Vital Signs Temp Pulse Resp BP Pulse Ox 07/24/19 07:10 37.2 C 76 16 114/73 07/24/19 03:48 37 C 83 16 108/71 96 Laboratory Results 07/24/19 07/24/19 07/23/19 Range/Units 06:26 06:26 14:34 WBC 9.21 (4.8-10.8) K/uL RBC 4.14 L (4.2-5.4) M/uL Hgb 11.9 L (12.0-16.0) g/dL Hct 36.0 L (37-47) % MCV 87.0 (80-100) fL MCH 28.7 (25-34) pg MCHC 33.1 (32-36) g/dL RDW Std Deviation 44.6 (36.4-46.3) fL RDW Coeff of Marco Antonio 14.1 (11.5-14.5) % Plt Count 232 (130-400) K/uL MPV 10.2 (7.4-10.4) fL Immature Gran % (Auto) 0.4 % Neut % (Auto) 68.8 % Lymph % (Auto) 20.4 % [place] % (Auto) 9.3 % Eos % (Auto) 0.8 % Baso % (Auto) 0.3 % Immature Gran # (Auto) 0.04 H (0.00-0.02) K/uL Neut # (Auto) 6.33 (1.4-6.5) K/uL Lymph # (Auto) 1.88 (1.2-3.4) K/uL [place] # (Auto) 0.86 H (0.11-0.59) K/uL Eos # (Auto) 0.07 (0-0.5) K/uL Baso # (Auto) 0.03 (0-0.2) K/uL Sodium 139 (136-145) mmol/L Potassium 3.5 (3.5-5.1) mmol/L Chloride 109 H (98-107) mmol/L Carbon Dioxide 25 (21-32) mmol/L Anion Gap 6.0 (3-11) BUN 5 L (7-18) mg/dl Creatinine 0.64 (0.6-1.2) mg/dl Est Cr Clr Drug Dosing 174.2 ml/min Est GFR ( Amer) 144.8 Est GFR (Non-Af Amer) 124.9 BUN/Creatinine Ratio 7.2 L (10-20) Glucose 95 (70-99) mg/dl Calcium 8.7 (8.5-10.1) mg/dl Total Bilirubin 0.3 (0.2-1) mg/dl AST 17 (15-37) U/L ALT 50 (12-78) U/L Alkaline Phosphatase 62 (45-117) U/L Total Protein 7.1 (6.4-8.2) gm/dl Albumin 2.6 L (3.4-5.0) gm/dl Globulin 4.5 H (2.5-4.0) gm/dl Albumin/Globulin Ratio 0.6 L (0.9-2) Vancomycin Trough 7.0 (See Comment) mcg/ml Microbiology 07/23/19 12:05 Gram Stain - Final Buttock 07/21/19 09:59 Aerobic Blood Culture - Preliminary Blood No growth in Aerobic bottle after 48 hours. Anaerobic Blood Culture - Preliminary No growth in Anaerobic bottle after 48 hours. 07/21/19 09:51 Aerobic Blood Culture - Preliminary Blood No growth in Aerobic bottle after 48 hours. Anaerobic Blood Culture - Preliminary No growth in Anaerobic bottle after 48 hours.
--- NOTE | 2019-07-24 12:08 | Discharge Summary ---
Date of Service July 24, 2019 Admission HPI Per Admitting Provider Snow Rodas is a 23 year old female who was referred to the ER by [facility] due to left gluteal pain and concern for perirectal abscess. She reports this started 6 days ago. Never had this previously. Initially just pain but the last few days she has noticed her left buttocks getting larger. Using hot water with towel, heating pad, tea tree oil but this was not helping. Currently hurts while walking or sitting down. At home she was taking ibuprofen previously and acetaminophen today but nothing helping. No fevers or chills. Lately she is working from home and sitting with the lockdown she has been sitting down a lot more. 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 She denies any nausea, vomiting, abdominal pain, constipation or diarrhea. She is having normal bowel movements without pain. No recent history of cough, shortness of breath, fever, loss of taste or smell. No known COVID-19 exposure. In the ER she underwent CT A/P with IV contrast showing infiltration of the soft tissues of the left medial gluteal fold without a discrete well-defined abscess. Dr Garvey (general surgery) consulted and recommended admission for IV antibiotics. IV Zosyn 4.5mg given in ER. Principal Diagnosis Perirectal cellulitis and gluteal abscess Discharge Exam Constitutional WD/WN, vitals as above Respiratory normal respiratory effort, lungs clear to auscultation Cardiovascular RRR, no murmur, no edema Gastrointestinal (Abdomen) Inspection/Auscultation: abdomen normal to inspection and normal bowel sounds; abdomen not distended Percussion/Palpation: abdomen soft; abdomen nontender Musculoskeletal no cyanosis or clubbing, extremities motor strength 5/5 Skin no rashes, warm and dry Neurologic moves all extremities and awake Psychiatric A+Ox3, euthymic affect Discharge Data Allergies Allergy/AdvReac Type Severity Reaction Status Date / Time No Known Allergies Allergy Verified 07/23/19 10:36 Consultations 07/21/19 12:20 ED Decision to Admit Stat 07/21/19 14:03 Consult General Surgery Routine Procedures Performed Operation Date: 07/23/19 07:00 Actual Procedures p Incision and Drainage Buttock Abscess(Not Applicable) - Rhett Garvey MD Ordered Studies 07/21/19 09:41 CT abd pelvis IV con only Stat 07/22/19 12:27 MR abdomen wo/w con Routine Hospital Course (1) Perirectal cellulitis: Appreciate surgery consult - OR 07/22 for I&D, no need for packing per surgery Tachycardia/fever resolved Blood cultures ngtd IV Unasyn 3g Q6H, vancomycin for MRSA coverage, surgical culture pending - home with Augmentin per surgery, no need for packing Pain control, stool softeners - pain is much better today, can use Tylenol and ibuprofen for pain relief (2) Hypokalemia: Resolved (3) Nodule of soft tissue: Seen on CT - 28 mm soft tissue nodule between the spleen and left kidney MRI to re-evaluate - renal cyst (4) DVT prophylaxis: Low risk per calculator, encouraged ambulation Total Time Total Time Spent Total Time Spent (In Minutes): greater than 30 minutes Discharge Plan Discharge Items Patient Disposition: Home - Self-Care Reason For Visit: PERIRECTAL CELLULITIS Discharge Diagnosis: Perirectal cellulitis Condition on Discharge: Good Activity: Per Instructions section Non-emergency contact: Primary Care Provider Call non-emergency contact if: you have any medication questions, your symptoms worsen, your pain is not controlled, your pain is worsening, you have a fever and your wound has increased drainage Follow-up/Referrals: Rhett Garvey MD [Physician] - 07/29/19 3:15 pm ([facility] [Non-Staff] - 07/30/19 2:00 pm PCP,NO [Primary Care Provider] - (Please follow up with your provider at [facility] in the next week ) Diet: Regular Addtl Attending Provider Instructions: (1) Perirectal cellulitis: You were taken to the operating room 07/22 for an incision and drainage of your infection. Your blood cultures did not grow any bacterial cultures, there is very little growing from the wound culture and if an organism is identified and your antibiotic needs to be changed, we will call you. You received IV Unasyn and vancomycin while inpatient. You will go home with Augmentin. You should continue taking your control pills but should use a secondary contraceptive like condoms to prevent while you are taking the antibiotic and for a couple of days after completing the regimen as it can affect the efficacy of your control. Continue stool softeners (Colace) which you can obtain over the counter You can use ibuprofen and acetaminophen for pain control. You can take 1,000 mg (1 g) of acetaminophen (Tylenol) every 8 hours not to exceed 3,000 mg in 24 hours. If you are having pain in between acetaminophen doses you can take ibuprofen. Ibuprofen can be very hard on the stomach causing irritation and even some bleeding if taking frequently over an extended period of time so I would recommend you use this for breakthrough pain when the acetaminophen isn't cutting it. You can also take the tramadol that has been prescribed which is a low dose narcotic. (2) Hypokalemia (low potassium level): Resolved, likely due to low intake while you were feeling unwell (3) Nodule of soft tissue: Initially seen on, re-evaluated on MRI which is apparently a cyst on your kidney. You can follow up with your primary care provider but this is a benign finding and does not require further workup at this time. Addtl Sheet Metal Worker Helper Provider Instructions: ACTIVITY RECOMMENDATIONS: * No heavy lifting for 1 week. MEDICATIONS: Resume previous medications unless instructed otherwise by your surgeon. * Colace (stool softener) 100 mg 2 times per day * Extra Strength Tylenol 500 - 1000 mg every 4 hours, as needed for pain * Ibuprofen 600 mg every 6 hours, as needed for pain * Take antibiotic (Augmentin) as prescribed for entire course SPECIAL CARE INSTRUCTIONS: * Remove dressings and start sitz baths in A.M. unless you have a bowel movement tonight, then remove dressings and start sitz baths at that time. * Shower or sitz bath after each bowel movement. * Call the surgeon's office with any questions or concerns - (ex. temperature higher than 101 degrees F, excessive bleeding or pain). FOLLOW UP VISIT: please call the office to schedule a one week follow-up appointment. Office number . Pending Studies at Discharge: Yes (wound culture) Stand-Alone Forms: [facility], Opioid Pain Management, Smoking Cessation Medications and DC Order Prescriptions: New amoxicillin-pot clavulanate [Augmentin] 875-125 mg tablet 1 tab PO BID Qty: 14 RF: 0 docusate sodium 100 mg Capsule 100 mg PO DAILY Qty: 60 RF: 0 tramadol 50 mg tablet 25 mg PO Q6H Qty: 6 RF: 0 Continued acetaminophen [Tylenol Extra Strength] 500 mg Tablet 500 mg PO Q6H PRN (Reason: Pain) RF: 0 norethindrone-e.estradiol-iron [] 1 mg-20 mcg (24)/75 mg (4) Tablet 1 tab PO DAILY RF: 0 Discharge Orders: Discharge Order (Routine); Ordered 07/24/19 Ordered By: Meli Ho/Other Patient Handouts: Sitz Bath, Tramadol tablets, Amoxicillin Clavulanic Acid tablets Admission Data Admit Date/Time: 07/23/19 08:38 Attending Provider: Wyatt Trejo Admit Provider: Cameron Napoles Primary Care Provider: PCP,NO Other Providers: Wyatt Trejo ; Cameron Napoles ; Rhett Garvey Other Interventions: Discharge Summary Assessment (RN) Last Done: 07/24/19 12:54 DC Date/Time DO NOT enter until pt leaves facility: 07/24/19 13:37 Supervising Physician Co-Signing Physician Notes I supervised Meli Chapin NP on this patient's care. I examined the patient today independently of her. I discussed the plan of care with her with the plan being as written in her note except for any following changes/exceptions: None. Feeling better today. Less pain. Wound repacked by surgery with approval for home. Will discharge on Augmentin. Follow up with PCP and surgery. Coding Level of Care Code D/C Day Management >30 mins Diagnoses Perirectal cellulitis K61.1 Hypokalemia E87.6 Nodule of soft tissue M79.89 DVT prophylaxis Z29.9
[2019-07-24] MEDS ORDERED: VANCOMYCIN TROUGH ONE (13:30)
== END 2019-07-24 13:37 | disposition home or self-care (01) | DRG 395 ==
LOC: 3N 09:19 → ED 09:19 → SUATTDRO 12:17 → 3N 13:50